=== PATIENT | male | born 1955 | race Caucasian/White ===

== ENCOUNTER 2017-01-05 23:26 | Emergency (ER) | payer MEDICARE ==
[~2017-01-05] VITALS: Ht 177.8 cm; Wt 118.8 kg
--- NOTE | ~2017-01-05 | CR63 ---
[facility] A Service of [facility] & [facility] RADIOLOGY TEXT RESULTS PATIENT: ILANA ALICIA LOCATION: [facility] : 55 UNIT #: [id number] AGE: [address]: Ravi Mata MD SEX: M ORDER DR: [id number] [facility] [address] [place], [place] [address] [id number] MR#: [id number] Acc #: [id number] NAME: ILANA ALICIA. : 1955 SEX: M STUDY DATE/TIME: 01/06/2017 1:14 UNIT: [facility] ROOM: STUDY DESCRIPTION: CR Chest 2 View Attending Physician: Ravi Mata M.D. Ordering Physician: Ravi Mata M.D. Primary Care Physician: Alfa Smallwood M.D. MEDICAL IMAGING REPORT This report is preliminary unless electronic signature is present EXAM PA and lateral chest, 01/06/2017 HISTORY Chest pain for 1 day. COMPARISON PA and lateral chest, 12/08/2011 FINDINGS No acute airspace disease. Heart size is upper limits normal but stable. Benign calcified granulomatous changes are present. Left lower lung appears stable, mild asymmetric elevation right hemidiaphragm. IMPRESSION No acute cardiopulmonary findings. Dictated by... Marlys Goodwin M.D. THIS IS AN ELECTRONICALLY VERIFIED REPORT Marlys Goodwin M.D. at 01/06/2017 9:51 PM Kelvin TD: 01/06/2017 09:42 JOB #: [id number] MEDICAL IMAGING REPORT Page 1 of 1 COPY
--- NOTE | ~2017-01-05 | EKG ---
PATIENT: ILANA ALICIA UNIT #: [id number] Ventricular Rate: 61 BPM Atrial Rate: 61 BPM P-R Interval: 198 ms QRS Duration: 88 ms Q-T Interval: 380 ms QTC Calculation(Bezet): 382 ms P [place]: 53 degrees Calculated R [place]: -14 degrees Calculated T [place]: 85 degrees Diagnosis Line: Normal sinus rhythm Diagnosis Line: Moderate voltage criteria for LVH, may be normal Diagnosis Line: variant Diagnosis Line: ST and T wave abnormality, consider lateral ischemia Diagnosis Line: Abnormal ECG Diagnosis Line: Diagnosis Line: Confirmed by MARY JUDD MD ([id number]) on Diagnosis Line: 01/06/2017 2:02:44 PM INTERPRETING MD: BINTA NAIK
[~2017-01-05 23:26] MED LIST: ACETAMINOPHEN PO; ADVIL200 M2 PO; ARTANE PO; ASPIRINEC PO; ATENOLOL PO; CITRATE OF MAG300 ML PO; COLACE PO; CRESTOR PO; DEPAKOTE ER PO; DEPAKOTE PO; FENOFIBRATE145 MG PO; FISH OIL 1,0001 CAP PO; HALDOL; HALDOL IM; HALDOL PO; HALOPERIDO50 MG/1 ML IM; HCTZ PO; KLONOPIN PO; LEVOTHROID75 MCG PO; LOPID600 MG PO; LOSARTAN POTASS50 MG PO; NITROGYLCERIN SUBLINGUAL; PATIENT'S PHARMACY; PLAVIX PO; PRAVACHOL PO; PROPRANOLOL PO; SEROQUEL PO; SYNTHROID PO; TRIHEXYPHENIDYL HCL PO; TRIHEXYPHENIDYL2 MG PO
[2017-01-06 01:31] LABS: POC - CKMB 1.4 ng/mL (0.0-7.9); POC - TROPONIN <0.05 ng/mL (<=0.05)
[2017-01-06 01:35] LABS: BASOPHIL# 0.2 X10e3 (0-0.3); EOSINOPHIL# 0.1 X10e3 (0-0.7); EOSINOPHIL% 1.8 % (0.0-7.0); HEMATOCRIT 42.3 % (38.0-50.0); HEMOGLOBIN 14.6 gm/dL (13.0-16.0); LYMPHOCYTE# 2.4 X10e3 (1.0-3.5); LYMPHOCYTE% 30.4 % (17.0-45.0); MEAN CELL VOLUME 90.5 FL (83-96); MEAN CORPUSCULAR HEMOGLOBIN 31.2 PG (28-34); MEAN CORPUSCULAR HGB CONC 34.5 g/dL (30-36); MEAN PLATELET VOLUME 8.4 FL (6.5-11.5); MONOCYTE# 1.1 X10e3 (0-1.0); MONOCYTE% 13.9 % (3.0-12.0); NEUTROPHIL# 4.1 X10e3 (1.5-7.1); NEUTROPHIL% 51.9 % (40-75); PLATELET COUNT 240 X10e3 (140-420); RED BLOOD COUNT 4.68 X10e (3.90-5.60); RED CELL DISTRIBUTION WIDTH 13.1 % (11.0-15.5); WHITE BLOOD COUNT 7.9 X10e3 (4.0-10.5)
[2017-01-06 01:38] LABS: DIFF IND NO
[2017-01-06 01:51] LABS: PARTIAL THROMBOPLASTIN TIME 23.3 SECONDS (23.5-31.3); PROTHROMBIN TIME (PATIENT) 10.6 SECONDS (10.0-11.7)
[2017-01-06 02:09] LABS: ALBUMIN SERUM 3.9 g/dL (3.5-5.0); BILIRUBIN, DIRECT 0.1 mg/dL (0.0-0.2); BILIRUBIN,INDIRECT 0.3 mg/dL (0.0-0.9); BILIRUBIN,TOTAL 0.4 mg/dL (0.2-2.0); CALCIUM SERUM 9.7 mg/dL (8.4-10.2); GLOM FILT RATE Estimated 80.9 mL/min (>60); POTASSIUM 4.4 mmol/L (3.5-5.1); PROTEIN TOTAL SERUM 7.1 g/dL (6.0-8.3)
== END 2017-01-06 03:15 | disposition home or self-care (01) ==
LOC: CED 23:26
PROVIDERS: Emergency Medicine
DX: R07.9 Chest pain, unspecified (principal); E78.5 Hyperlipidemia, unspecified; I10 Essential (primary) hypertension; Z79.899 Other long term (current) drug therapy
CPT/HCPCS: 36415; 71020; 80048; 80076; 82553; 84484; 85025; 85610; 85730; 93005; 99285